=== PATIENT | male | born 1970 | race Caucasian/White ===

== ENCOUNTER 2018-10-31 12:03 | Observation (INO) ==
--- NOTE | 2018-10-31 12:25 | Emergency Department Note ---
Disposition Clinical Impression: JOYCE (acute kidney injury) Chest pain Qualifiers: Chest pain type: unspecified Qualified Code(s): R07.9 - Chest pain, unspecified Disposition: Admitted As Inpatient Condition: Good Referrals: Meg Pimentel CNP [Primary Care Provider] - Forms: ED Satisfaction Letter Time of Disposition: 16:25 General Adult HPI - General Chief complaint: ED Chest Pain Stated complaint: CP Time Seen by Provider: 10/31/18 12:13 Source: patient Mode of arrival: ambulatory Limitations: no limitations Nursing Notes Reviewed: Yes Vital Signs Reviewed: Yes - History of Present Illness HPI Narrative: Male patient presenting to respond complaining of left-sided chest pain. He initially went to urgent care earlier today however was sent here after he had some mild ST elevation noted in leads V1 and V2. Also be 3 was noted to be el evated on his initial EKG here. He states that he did take nitroglycerin at home which relieved the pain. However it did come back. This is abnormal for his previous chest pain. He currently denies any shortness of breath. Denies any fevers or chills. Denies any cough or congestion. Denies any diaphoresis or nausea associated with this. No history of hematochezia or melena or hematemesis. He has been taking his medication as prescribed. Does have history of high cholesterol. Pain Scale: 0 - Related Data Home Medications Medication Instructions Recorded Confirmed Aspirin [Lo-Dose Aspirin EC] 81 mg PO DAILY 04/11/17 10/31/18 Coumadin 5 mg PO QAM 04/11/17 10/31/18 Isosorbide. 30 mg PO QAM 04/11/17 10/31/18 Lisinopril [Zestril] 40 mg PO DAILY 04/11/17 10/31/18 Nitroglycerin [Nitrostat] 0.4 mg SL PRN PRN 04/11/17 10/31/18 Toprol Xl 200 mg PO QAM 04/11/17 10/31/18 hydroCHLOROthiazide 50 mg PO DAILY 04/11/17 10/31/18 [Hydrochlorothiazide] Ranolazine [Ranexa] 1,000 mg PO BID 10/31/18 10/31/18 Allergies Allergy/AdvReac Type Severity Reaction Status Date / Time codeine Allergy Rash Verified 01/15/18 15:24 All systems ED: reviewed and negative except as stated. Review of Systems: As Per HPI Constitutional: Denies: fever, chills ENT ED: Denies: congestion Cardiovascular: Reports: chest pain. Denies: palpitations, syncope Respiratory: Denies: cough, dyspnea Gastrointestinal: Denies: abdominal pain, nausea, vomiting, diarrhea Genitourinary: Denies: urgency, dysuria, frequency, hematuria Musculoskeletal: Denies: back pain, neck pain Integumentary: Denies: rash Neurological: Denies: headache, weakness Past Medical History - Past Medical History Attestation: Yes The following information was validated with the patient. Source: patient Medical history: Reports: coronary artery disease, hyperlipidemia, hypertension, other Psychiatric history: Reports: no psych history - Social History Smoking Status: Never smoker Smokeless Tobacco Status: No Alcohol use: Reports: none Drug use: Reports: none Physical Exam - General Limitations: no limitations General appearance: alert, in no apparent distress - Head Head exam: atraumatic, normocephalic, normal inspection - Eye Eye exam: Present: normal appearance, PERRL, EOMI - ENT ENT exam: normal exam, normal oropharynx, mucous membranes moist - Neck Neck exam: Present: normal inspection, full ROM, trachea midline - Chest Chest inspection: Present: normal inspection, symmetric chest wall rise - Respiratory Respiratory exam: Present: normal lung sounds bilaterally. Absent: respiratory distress, accessory muscle use - Cardiovascular Cardiovascular exam: Present: regular rate, normal rhythm, systolic murmur - Abdominal Exam Abdominal exam: Present: soft, Non-Tender. Absent: tenderness, distention, guarding, rebound, rigidity, organomegaly, Paige's sign, Rovsing's sign, tenderness at McBurney's Point - Extremities Exam Extremities exam: Present: normal inspection, full ROM, normal capillary refill. Absent: tenderness, pedal edema, calf tenderness - Back Exam Back exam: Present: normal inspection, full ROM. Absent: tenderness - Neurological Exam Neurological exam: Present: alert, oriented X3 - Psychiatric Psychiatric exam: Present: normal affect, normal mood - Skin Skin exam: Present: warm, dry, intact, normal color. Absent: rash, cyanosis, diaphoresis Course Course Narrative: Patient appears well resting in bed. Does not appear to be in acute distress. Does have a history of a mechanical valve replacement. Complaining of a sided chest pain. Denies any shortness of breath. States he did take some ni troglycerin at home and is generally takes his finger way however it did return again. States he has been feeling fleeting chest pain over the past week. Denies any other symptoms at this time. No diaphoresis and nausea vomiting or diarrhea. Does have a history of high cholesterol does have a family history of heart disease. Does have some mild ST elevations in leads V2 and V3. These were on previous EKG. Patient was a moderate score on his heart score. Troponin was negative. And get a basic lab workup on him and showed a elevated creatinine. We will provide him with a liter of fluid at this time. He does take a baby aspirin a day so we did give him 3 more while here. He states that his pain is gone at this time. We will admit to the hospital for further cardiac evaluation. He has never had a cardiac workup outside of his valve replacement. His INR was also noted to be mildly elevated. - Consultations Consultation #1: Dr Figueredo accepted Pt in stable condition. Time: 17:13 Vital Signs Temperature 97.6 F 10/31/18 12:12 Pulse Rate 67 10/31/18 12:12 Respiratory Rate 18 10/31/18 12:12 Blood Pressure 149/66 10/31/18 12:12 O2 Sat by Pulse Oximetry 100 10/31/18 12:12 Temperature 97.6 F 10/31/18 12:12 Pulse Rate 60 10/31/18 15:35 Respiratory Rate 13 10/31/18 15:04 Blood Pressure 139/52 10/31/18 15:35 O2 Sat by Pulse Oximetry 98 10/31/18 15:04 Oxygen Delivery Oxygen Delivery Room Air Medical Decision Making - Medical Records Medical records reviewed: Yes I reviewed the patient's medical records. - Lab Data Lab results reviewed: Yes I reviewed the patient's lab results. Result diagrams: 10/31/18 12:21 10/31/18 12:21 Lab Results 10/31/18 10/31/18 10/31/18 Range/Units 12:21 12:21 12:21 WBC 9.7 (4.3-11.1) K/mcL RBC 4.34 (4.19-5.50) M/mcL Hgb 13.6 (12.9-16.9) g/dL Hct 40.9 (37.5-50.1) % MCV 94.2 (83.0-100.0) fL MCH 31.3 (28.0-33.3) pg MCHC 33.3 (31.6-35.5) g/dL RDW 13.7 (11.5-14.5) % Plt Count 200 (140-400) K/mcL MPV 10.4 (9.4-12.4) fL Immature Gran % 0.3 (0-4) % Seg Neutrophils % 58.3 % Lymphocytes % 27.0 % Monocytes % 11.4 % Eosinophils % 2.6 % Basophils % 0.4 % Neutrophils # 5.6 (1.6-8.9) K/mcL Lymphocytes # 2.6 (0.6-4.6) K/mcL Monocytes # 1.1 (0.0-1.3) K/mcL Eosinophils # 0.3 (0.0-0.6) K/mcL Basophils # 0.0 (0.0-0.2) K/mcL PT 45.3 H* (9.4-12.1) Seconds INR 4.0 Sodium 136 (136-145) mEq/L Potassium 3.8 (3.5-5.1) mEq/L Chloride 100 (98-107) mEq/L Carbon Dioxide 28 (23-29) mEq/L BUN 32 H (6-20) mg/dL Creatinine 1.64 H (0.70-1.30) mg/dL Est GFR ( Amer) 55 L (> 60) Est GFR (Non-Af Amer) 45 L (> 60) BUN/Creatinine Ratio 20 (6-26) Glucose 101 (70-105) mg/dL Calculated Osmolality 289 (280-300) Calcium 10.7 H (8.6-10.3) mg/dL Troponin I 0.03 (< 0.04) ng/mL - Radiology Data Radiology results reviewed: Yes I reviewed the patient's radiology results. Chest X-Ray 10/31/18 12:19 IMPRESSION: 1. No acute cardiopulmonary disease. 2. Cardiomegaly. D/ / 10/31/2018 12:54:01 Aline Gutierrez MD / Dawna Diamond Interpreting Provider: Aline Gutierrez MD - EKG Data EKG #1 EKG attestation: Yes I reviewed and interpreted this EKG. EKG results narrative: Repeat EKGs 1532. No signs of acute ischemia. No progression of the ST kirk vation in lead V1 V2 and V3. Likely chronic. EKG #2 EKG attestation: Yes I reviewed and interpreted this EKG. EKG results narrative: Repeat EKGs 1532. No signs of acute ischemia. No progression of the ST elevation in lead V1 V2 and V3. Likely chronic.
--- NOTE | 2018-10-31 12:27 | Emergency Department Note ---
Disposition Clinical Impression: JOYCE (acute kidney injury) Chest pain Qualifiers: Chest pain type: unspecified Qualified Code(s): R07.9 - Chest pain, unspecified Disposition: Admitted As Inpatient Condition: Good Time of Disposition: 17:42 General Adult HPI - General Chief complaint: ED Chest Pain Stated complaint: CP Time Seen by Provider: 10/31/18 12:13 Nursing Notes Reviewed: Yes Vital Signs Reviewed: Yes - History of Present Illness Pain Scale: 0 - Related Data Home Medications Medication Instructions Recorded Confirmed Aspirin [Lo-Dose Aspirin EC] 81 mg PO DAILY 04/11/17 10/31/18 Coumadin 5 mg PO QAM 04/11/17 10/31/18 Lisinopril [Zestril] 40 mg PO DAILY 04/11/17 10/31/18 Nitroglycerin [Nitrostat] 0.4 mg SL PRN PRN 04/11/17 10/31/18 hydroCHLOROthiazide 50 mg PO DAILY 04/11/17 10/31/18 [Hydrochlorothiazide] Isosorbide MONOnitrate (24 HR) 30 mg PO DAILY 10/31/18 10/31/18 [Imdur] Metoprolol Succinate [Toprol Xl] 200 mg PO DAILY 10/31/18 10/31/18 Ranolazine [Ranexa] 1,000 mg PO BID 10/31/18 10/31/18 Allergies Allergy/AdvReac Type Severity Reaction Status Date / Time codeine Allergy Rash Verified 04/11/17 15:24 Past Medical History - Past Medical History Medical history: Reports: coronary artery disease, hyperlipidemia, hypertension, other Psychiatric history: Reports: no psych history - Social History Smoking Status: Never smoker Smokeless Tobacco Status: No Alcohol use: Reports: none Drug use: Reports: none Physical Exam - General General appearance: alert Course Vital Signs Temperature 97.6 F 10/31/18 12:12 Pulse Rate 67 10/31/18 12:12 Respiratory Rate 18 10/31/18 12:12 Blood Pressure 149/66 10/31/18 12:12 O2 Sat by Pulse Oximetry 100 10/31/18 12:12 Temperature 97.6 F 10/31/18 12:12 Pulse Rate 73 10/31/18 17:25 Respiratory Rate 17 10/31/18 17:25 Blood Pressure 164/65 10/31/18 17:25 O2 Sat by Pulse Oximetry 97 10/31/18 17:25 Oxygen Delivery Oxygen Delivery Room Air Medical Decision Making - MDM Narrative Medical decision making narrative: Chest X-Ray 10/31/18 12:19 IMPRESSION: 1. No acute cardiopulmonary disease. 2. Cardiomegaly. D/ / 10/31/2018 12:54:01 Aline Gutierrez MD / Dawna Diamond Interpreting Provider: Aline Gutierrez MD Patient does have an AKA I with the last creatinine I have is more than 3 years old slight ulnar how acute this is. His troponins negative. His INR is 4 which is a little high for his valve, I think with his EKG not have an old EKG it might be prudent to bring him into the hospital sort talk to him about that. 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 1615 hrs.: We did get an EKG finally from the full stack python developer's office the date on is not readable; overall quality of this EKG is poor.it shows a sinus rhythm, rate of 64 QRS is 105 QTC is 429 did have the same morphology on this EKG is today's EKG this old EKG is been very difficult to read just due to quality of copy. We talked about coming in the hospital and he is agreement with plan. - Lab Data Result diagrams: 10/31/18 12:21 10/31/18 12:21 Lab Results 10/31/18 10/31/18 10/31/18 Range/Units 12:21 12:21 12:21 WBC 9.7 (4.3-11.1) K/mcL RBC 4.34 (4.19-5.50) M/mcL Hgb 13.6 (12.9-16.9) g/dL Hct 40.9 (37.5-50.1) % MCV 94.2 (83.0-100.0) fL MCH 31.3 (28.0-33.3) pg MCHC 33.3 (31.6-35.5) g/dL RDW 13.7 (11.5-14.5) % Plt Count 200 (140-400) K/mcL MPV 10.4 (9.4-12.4) fL Immature Gran % 0.3 (0-4) % Seg Neutrophils % 58.3 % Lymphocytes % 27.0 % Monocytes % 11.4 % Eosinophils % 2.6 % Basophils % 0.4 % Neutrophils # 5.6 (1.6-8.9) K/mcL Lymphocytes # 2.6 (0.6-4.6) K/mcL Monocytes # 1.1 (0.0-1.3) K/mcL Eosinophils # 0.3 (0.0-0.6) K/mcL Basophils # 0.0 (0.0-0.2) K/mcL PT 45.3 H* (9.4-12.1) Seconds INR 4.0 Sodium 136 (136-145) mEq/L Potassium 3.8 (3.5-5.1) mEq/L Chloride 100 (98-107) mEq/L Carbon Dioxide 28 (23-29) mEq/L BUN 32 H (6-20) mg/dL Creatinine 1.64 H (0.70-1.30) mg/dL Est GFR ( Amer) 55 L (> 60) Est GFR (Non-Af Amer) 45 L (> 60) BUN/Creatinine Ratio 20 (6-26) Glucose 101 (70-105) mg/dL Calculated Osmolality 289 (280-300) Calcium 10.7 H (8.6-10.3) mg/dL Troponin I 0.03 (< 0.04) ng/mL Attestation Statement - Attestation Attestation: This documentation is done with the assistance of Dragon dictation. Despite efforts made to ensure accuracy, there may be inaccuracies in talent acquisition manager or spelling and typographical errors. I examined this patient and my medical decision-making was reviewed with the Resident Physician. I agree with the documented findings, disposition and treatment plan as described except to the extent set forth below. Patient was seen and evaluated by agreement, I agree with their evaluation and management plan, I supervised care the patient's stay. Patient presents today with chest pain from work. Nitroglycerin relieved his pain went to urgent care he had some elevation in V1 and V2, no old EKG to compare to and chest pain-free. He repeat EKG looks similar we do not have an old EKG, but he said his full stack python developer who is here probably has his EKGs from outside hospitals and he recommended trying to get one from there which we will do. We will order a troponin and lab workup and reassess currently chest pain-free. He has had aspirin already. I reviewed the residents documentation and agree with the residents assessment and plan of care. I have personally had face to face time with the patient. (Brief History, Brief Exam, and MDM) I personally supervised and was present for the knapp/critical portions of the following procedures completed by the resident: EKG was interpreted by the resident under my supervision, I agree with their interpretation.
[2018-10-31 12:36] LABS: Basophils % 0.4 %; Eosinophils # 0.3 K/mcL (0.0-0.6); Eosinophils % 2.6 %; Hematocrit 40.9 % (37.5-50.1); Hemoglobin 13.6 g/dL (12.9-16.9); Immature Granulocytes % 0.3 % (0-4); Lymphocytes # 2.6 K/mcL (0.6-4.6); Mean Corpuscular HGB Conc 33.3 g/dL (31.6-35.5); Mean Corpuscular Hemoglobin 31.3 pg (28.0-33.3); Mean Corpuscular Volume 94.2 fL (83.0-100.0); Mean Platelet Volume 10.4 fL (9.4-12.4); Monocytes # 1.1 K/mcL (0.0-1.3); Monocytes % 11.4 %; Neutrophils # 5.6 K/mcL (1.6-8.9); Platelet Count 200 K/mcL (140-400); Red Blood Count 4.34 M/mcL (4.19-5.50); Red Cell Distribution Width 13.7 % (11.5-14.5); Segmented Neutrophils % 58.3 %; White Blood Count 9.7 K/mcL (4.3-11.1)
[2018-10-31 12:57] LABS: Calcium 10.7 mg/dL (8.6-10.3); Potassium 3.8 mEq/L (3.5-5.1); Troponin I 0.03 ng/mL (< 0.04)
[2018-10-31 13:02] LABS: Prothrombin Time 45.3 Seconds (9.4-12.1)
[2018-10-31] MEDS ORDERED: 0.9 % Sodium Chloride 1,000 ML IVC ONE (15:51)
[2018-10-31] MEDS ORDERED: Aspirin 81 MG TAB.CHEW PO ONE (16:00)
[2018-10-31] MEDS ORDERED: Aspirin 81 MG TAB.CHEW PO SCH (16:00)
[2018-10-31] MEDS ORDERED: Naloxone 0.4 MG/ML INJ IVP PRN (18:18)
[2018-10-31] MEDS ORDERED: Nitroglycerin 0.4 MG TAB.SUBL SL PRN (18:18)
[2018-10-31] MEDS ORDERED: *HR* Promethazine 25 MG/ML VIAL IVP PRN (18:18)
[2018-10-31] MEDS ORDERED: Ondansetron ODT 4 MG TAB.RAPDIS SL PRN (18:18)
--- NOTE | 2018-10-31 18:27 | Internal Med History&Physical ---
Date of Encounter: 10/31/18 Time of Encounter: 18:22 Internal Medicine - H&P: HPI Chief complaint: Chest Pain History of present illness: Mr. Renae is a 47 year old male with history of CAD s/p CABG and multiple stents (last in 2016) and mechanical MVR on chronic warfarin presents with chest pain. Patient has had pain in his left back that he describes as a burning s ensation over the last 2 weeks. Nonexertional. Describes pain as a burning and itching sensation. Has had this sensation about twice a week over the last 2 weeks. Today, however, pain seems to move into left shoulder and left chest area as well and was similar to chest pain he had when he had heart attacks in the past so this concerned him. Today this episode occurred at rest when he was working at a [employer]. He was not particularly stressed at that time. Pain was associated with shortness of breath. Nausea or vomiting. Health is otherwise been stable. Denies recent orthopnea, dyspnea on exertion, or lower extremity edema. In the ED, VSS. CBC within normal limits. Creatinine 1.64 (BL .9). Trop neg. EKG with ?ABIGAIL but unchanged from previous EKGs. Admitted to medicine. Past Med Surg Social Fam HX - Past Medical History Medical history: coronary artery disease, hyperlipidemia, hypertension, other Psychiatric history: no psych history - Social History Smoking Status: Never smoker Smokeless Tobacco Status: No Alcohol use: none Drug use: none - Family History Father Hx Family Cardiac Disorders: Yes Internal Medicine - H&P: Meds Aspirin [Lo-Dose Aspirin EC] 81 mg PO DAILY 04/11/17 [History] Coumadin 5 mg PO QAM 04/11/17 [History] Lisinopril [Zestril] 40 mg PO DAILY 04/11/17 [History] Nitroglycerin [Nitrostat] 0.4 mg SL PRN PRN 04/11/17 [History] hydroCHLOROthiazide [Hydrochlorothiazide] 50 mg PO DAILY 04/11/17 [History] Isosorbide MONOnitrate (24 HR) [Imdur] 30 mg PO DAILY 10/31/18 [History] Metoprolol Succinate [Toprol Xl] 200 mg PO DAILY 10/31/18 [History] Ranolazine [Ranexa] 1,000 mg PO BID 08/06/19 [History] Allergy/AdvReac Type Severity Reaction Status Date / Time codeine Allergy Rash Verified 04/11/17 15:24 All Systems PM: A 10-system review of systems was performed and is negative for pertinent findings except as documented above in the HPI. Review of systems: General: Fevers / Chills / Weight loss / Night sweats Eyes: Blurry Vision / Change in Vision HENT: Ear Pain / Ear Drainage / Rhinorrhea / Throat Pain / Lymphadenopathy Cardiovascular: Chest Pain / Palpatations / Orthopnea / PUENTES / Weight gain Lungs: Dyspnea / Wheezing / Cough / Sputum production / Pleurisy Abdomen: Abdomen pain / Abdominal distention / Nausea / Vomiting / Diarrhea / Const : Dysuria / Urinary Frequency / Urinary Urgency / Hematuria Extremities: LE edema / Ext pain / Ext erythema Skin: Rashes / Abrasions / Contusions Psych: Hallucinations / Anxiety / Depression Neuro: Weakness / Numbness / Tingling / Facial Droop / Dysphagia - Constitutional Vitals: Temp Pulse Resp BP Pulse Ox 97.6 F 73 17 164/65 97 10/31/18 12:12 10/31/18 17:25 10/31/18 17:25 10/31/18 17:25 10/31/18 17:25 Exam: General: Ill-appearing and in no acute distress HEENT: No erythema of posterior pharynx. No exudates. Lymphatics: No mandibular or cervical lymphadenopathy Cardiovascular: RRR. Mechanical murmur. No chest wall tenderness. Lungs: Clear to auscelltation bilaterally. Regular chest rise. Abdomen: Non-tender. No rebound or gaurding. Nl bowel sounds. Extremities: No edema. 2+ pulses radial and pedal pulses Skin: No rahses, abrasions, or contusions. Nl cap refill. Psych: Nl attention. A&Ox3 Neuro: intelligence applications II-XII intact. 5/5 strength. Sensation to light touch and pinprick intact. Internal Med - H&P Results - Labs CBC & Chem 7: 10/31/18 12:21 10/31/18 12:21 Labs: Short CBC 10/31/18 Range/Units 12:21 WBC 9.7 (4.3-11.1) K/mcL Hgb 13.6 (12.9-16.9) g/dL Hct 40.9 (37.5-50.1) % Plt Count 200 (140-400) K/mcL Neutrophils # 5.6 (1.6-8.9) K/mcL BMP 10/31/18 12:21 Sodium 136 Potassium 3.8 Chloride 100 Carbon Dioxide 28 BUN 32 H Creatinine 1.64 H Glucose 101 Calcium 10.7 H Cardiac Enzymes 10/31/18 Range/Units 12:21 Troponin I 0.03 (< 0.04) ng/mL - Impressions ITS Impressions Chest X-Ray 10/31/18 12:19 IMPRESSION: 1. No acute cardiopulmonary disease. 2. Cardiomegaly. D/ / 10/31/2018 12:54:01 Aline Gutierrez MD / Dawna Diamond Interpreting Provider: Aline Gutierrez MD - Assessment and Plan (1) Chest pain Current Visit: Yes Status: Acute Assessment and plan: Patient with history of CAD s/p CABG and multiple stents (last in 2015) and mechanical MVR on chronic warfarin presents with chest pain in the setting of stable vitals, unremarkable physical exam, negative troponin, and no changes on EKG. -Workup for cardiac causes thus far is negative but given patient's high risk will need serial troponins. -Chest pain started in his back which is somewhat concerning for dissection. Again not classic for dissection given non-tearing sensation radiating to back Currently creatinine would not support CTA without significant injury to the kidneys Given chest pain has resolved and patient is clinically stable, reasonable to hold off on CTA but low threshold to obtain if chest pain recurs -We will consult cardiology given no recent stress tests and patient obviously very high risk PLAN - Trend troponins - Consult to cardiology - S/p 325mg ASA. Continue ASA 81mg qd - Continue home metoprolol. Unclear why patient is not on statin - will inquire - Will need to transition from warfarin to heparin ggt if patient goes for cath Will hold warfarin now and start heparin ggt at [place] IF doesn't go for cath can d/c heparin ggt and resume warfarin Qualifiers: Chest pain type: other chest pain Qualified Code(s): R07.89 - Other chest pain; R07.8 - Other chest pain (2) CAD (coronary artery disease) Current Visit: Yes Status: Acute Assessment and plan: The above Qualifiers: Coronary Disease-Associated Artery/Lesion type: bypass graft [place] vs. transplanted heart: [place] heart Associated angina: with stable angina Qualified Code(s): I25.708 - Atherosclerosis of coronary artery bypass graft(s), unspecified, with other forms of angina pectoris (3) History of MVR with cardiopulmonary bypass Current Visit: Yes Status: Acute Assessment and plan: We will transition patient to heparin drip given possible need for LHC (4) Hypertension Current Visit: Yes Status: Acute Assessment and plan: Hold Kenneth and HCTZ in setting of JOYCE Qualifiers: Hypertension type: essential hypertension Qualified Code(s): I10 - Essential (primary) hypertension (5) JOYCE (acute kidney injury) Current Visit: Yes Status: Acute Assessment and plan: Patient says where he works is very hot so dehydration may be a factor and patient is status post IV fluids in the ED. Chest x-ray with cardiomegaly so we will evaluate for cardiorenal process as well. - BNP - Trend Cr - Time Spent With Patient Total time spent is greater than 50% in coordination of care (as documented) at patient's floor/unit and/or counseling patient:
[2018-10-31] MEDS: Ranolazine 500 MG TAB.ER.12H PO SCH (21:41)
[2018-10-31 22:19] LABS: Bilirubin,Urine Negative (Negative); Blood,Urine Negative (Negative); Clarity,Urine Clear (Clear); Color,Urine Yellow (Yellow); Glucose,Urine (UA) 100 mg/dL (Normal); Ketones,Urine Negative (Negative); Leukocyte Esterase,Urine Negative (Negative); Nitrite,Urine Negative (Negative); Protein,Urine Negative (Neg-Trace); Specific Gravity,Urine 1.009 (1.010-1.025); Urobilinogen,Urine Normal (Normal)
[2018-11-01] MEDS ORDERED: Heparin 25,000 UNIT/250 ML D5W 25,000 UNIT/250 ML IV.SOLN IVC SCH
[2018-11-01] MEDS ORDERED: *HR* Heparin 5,000 UNIT/ML VIAL IVP PRN ×2
[2018-11-01 06:28] LABS: Basophils % 0.4 %; Eosinophils # 0.3 K/mcL (0.0-0.6); Eosinophils % 3.6 %; Hematocrit 38.7 % (37.5-50.1); Hemoglobin 12.5 g/dL (12.9-16.9); Immature Granulocytes % 0.4 % (0-4); Lymphocytes # 2.1 K/mcL (0.6-4.6); Lymphocytes % 27.7 %; Mean Corpuscular HGB Conc 32.3 g/dL (31.6-35.5); Mean Corpuscular Hemoglobin 30.6 pg (28.0-33.3); Mean Corpuscular Volume 94.6 fL (83.0-100.0); Mean Platelet Volume 11.2 fL (9.4-12.4); Monocytes # 0.7 K/mcL (0.0-1.3); Monocytes % 9.9 %; Neutrophils # 4.3 K/mcL (1.6-8.9); Platelet Count 170 K/mcL (140-400); Red Blood Count 4.09 M/mcL (4.19-5.50); Red Cell Distribution Width 13.8 % (11.5-14.5); White Blood Count 7.5 K/mcL (4.3-11.1)
--- NOTE | 2018-11-01 06:32 | Electrocardiograph Report ---
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
[2018-11-01 06:51] LABS: INR 4.5
[2018-11-01 07:32] LABS: BUN/Creatinine Ratio 23 (6-26); Blood Urea Nitrogen 28 mg/dL (6-20); Calcium 9.3 mg/dL (8.6-10.3); Carbon Dioxide 25 mEq/L (23-29); Chloride 102 mEq/L (98-107); Glucose 137 mg/dL (70-105); Osmolality,Calculated 288 (280-300); Sodium 135 mEq/L (136-145); eGFR For African Americans > 60 (> 60); eGFR For Non-African Americans > 60 (> 60)
[2018-11-01] MEDS ORDERED: Regadenoson 0.4 MG/5 ML SYRINGE IVP ONE (11:05)
--- NOTE | 2018-11-01 12:03 | Cardiology Consult Note ---
<Andrea Christopher - Last Filed: 11/01/18 12:01> Date of Encounter: 11/01/18 Time of Encounter: 12:01 Assessment and Plan (1) Back pain Current Visit: Yes Status: Acute Presented with left sided back pain that he describes as a burning and itching sensation over the last 2 weeks. He noticed increased shortness of breath yesterday. Troponins negative x 3. He denies actual chest pain. TTE 11/07/17: LVEF 60-65%. Diastolic dysfunction with elevated filling pressures. Normal RV structure and function. Prosthetic aortic valve not well visualized. Borderline Doppler evidence for abnormal valve function. There also is turbulent aortic regurgitation which appears moderate. Mild mitral regurgitation. No pulmonary hypertension. Hx of CAD s/p CABG and mechanical mitral valve replacement in 2010, PCI (last in 2015). Given cardiac hx, will order TTE and pharmacologic nuclear stress test (2 day) for further evaluation. Qualifiers: Back pain location: back pain in unspecified location Chronicity: acute Back pain laterality: left Qualified Code(s): M54.9 - Dorsalgia, unspecified (2) CAD (coronary artery disease) Current Visit: Yes Status: Acute As above, hx of CABG and PCI. Continue ASA, BB, nitrates. Will start Statin. Qualifiers: Coronary Disease-Associated Artery/Lesion type: bypass graft [place] vs. transplanted heart: [place] heart Associated angina: with stable angina Qualified Code(s): I25.708 - Atherosclerosis of coronary artery bypass graft(s), unspecified, with other forms of angina pectoris (3) History of MVR with cardiopulmonary bypass Current Visit: Yes Status: Chronic Mechanical MVR on Coumadin. Goal INR 2.5-3.5. Currently 4.5 Heparin gtt stopped. Denies abnormal bleeding. Discussion w patient/family: The assessment and plan as outlined above was discussed with the patient and/or family members who expressed understanding and agreement. All questions were answered. Thank you for involving us in the care of your patient. Please call with any questions. I will discuss all the above with Dr. Martell and make changes as necessary. History of Present Illness Consult date: 11/01/18 Consult reason: back pain Chief complaint: back pain History of present illness: Mr. Renae is a 47 year old male with PMH history of CAD s/p CABG and mechanical mitral valve replacement in 2010, PCI (last in 2016),on chronic warfarin for MVR that presents with left sided back pain that he describes as a burning sensation over the last 2 weeks. Burning and itching sensation. He noticed increased shortness of breath yesterday. Troponins negative x 3. He denies actual chest pain. Cardiology consulted for further recs. Prior CV testing: TTE 11/07/17: LVEF 60-65%. Diastolic dysfunction with elevated filling pressures. Normal right ventricular structure and function. Prosthetic aortic valve not well visualized. Borderline Doppler evidence for abnormal valve function. There also is turbulent aortic regurgitation which appears moderate. Mild mitral regurgitation. No pulmonary hypertension. Past Med Surg Social Fam HX - Past Medical History Medical history: coronary artery disease, hyperlipidemia, hypertension, valvular heart disease, other Psychiatric history: no psych history - Past Surgical History Surgical History: angioplasty/stent, coronary bypass (CABG) - Social History Smoking Status: Never smoker Smokeless Tobacco Status: No Alcohol use: none Drug use: none - Family History Father Hx Family Cardiac Disorders: Yes Medications and Allergies Aspirin [Lo-Dose Aspirin EC] 81 mg PO DAILY 04/11/17 [History] Coumadin 5 mg PO QAM 04/11/17 [History] Lisinopril [Zestril] 40 mg PO DAILY 04/11/17 [History] Nitroglycerin [Nitrostat] 0.4 mg SL PRN PRN 04/11/17 [History] hydroCHLOROthiazide [Hydrochlorothiazide] 50 mg PO DAILY 04/11/17 [History] Isosorbide MONOnitrate (24 HR) [Imdur] 30 mg PO DAILY 10/31/18 [History] Metoprolol Succinate [Toprol Xl] 200 mg PO DAILY 10/31/18 [History] Ranolazine [Ranexa] 1,000 mg PO BID 10/31/18 [History] Allergy/AdvReac Type Severity Reaction Status Date / Time codeine Allergy Rash Verified 04/11/17 15:24 All Systems Review: The remainder of the systems were reviewed and are negative - Cardiovascular Cardiovascular: as per HPI, dyspnea on exertion, radiating jaw, neck or arm pain Physical Examination Vital Signs Temp Pulse Resp BP Pulse Ox 11/01/18 07:35 97.9 F 67 16 126/72 98 11/01/18 04:00 97.7 F 63 16 105/65 99 08/06/19 23:52 97.6 F 65 16 102/64 98 10/31/18 18:36 97.5 F L 68 16 152/79 95 10/31/18 17:25 73 17 164/65 97 10/31/18 15:35 60 139/52 10/31/18 15:04 62 13 146/60 98 10/31/18 12:12 97.6 F 67 18 149/66 100 Intake and Output 10/31/18 11/01/18 11/01/18 23:59 07:59 15:59 Intake Total 69.6 / 81.0 11.4 / 81.0 Balance 69.6 / 81.0 11.4 / 81.0 Intake: IV Fluids 69.6 / 81.0 11.4 / 81.0 Heparin 25,000 UNIT/250 ML D5W 69.6 / 81.0 11.4 / 81.0 25,000 unit In 250 ml @ 8.67 UNIT/KG/HR 10.009 mls/hr IVC . Q24H [facility] Rx#:[id number] General: Conversant, No Apparent Distress HEENT: Atraumatic, Normocephaly, Mucus Membranes Moist Neck: No JVD, Normal carotid pulses Cardiac: Reg Rate and Rhythm, Normal S1 and S2, No Murmur Lungs: Normal Breath Sounds, No Wheeze, Rales, Rhonchi Neuro: Alert and responsive, No focal deficits noted Abdomen: Soft, Non-Tender Skin: No rashes noted on visualized skin Musculoskeletal: No Chest Wall Tenderness Extremities: No Clubbing, No Cyanosis, No Edema, Normal Pulses Results 11/01/18 06:08 11/01/18 06:08 Lab Results 10/31/18 10/31/18 10/31/18 12:21 12:21 12:21 WBC 9.7 Hgb 13.6 Hct 40.9 Plt Count 200 INR 4.0 Sodium 136 Potassium 3.8 Chloride 100 Carbon Dioxide 28 BUN 32 H Creatinine 1.64 H Glucose 101 Calcium 10.7 H Troponin I 0.03 B-Natriuretic Peptide 10/31/18 10/31/18 11/01/18 18:50 20:18 06:08 WBC Hgb Hct Plt Count INR Sodium Potassium Chloride Carbon Dioxide BUN Creatinine Glucose Calcium Troponin I 0.03 < 0.03 B-Natriuretic Peptide 119 H 11/01/18 11/01/18 11/01/18 06:08 06:08 06:08 WBC 7.5 Hgb 12.5 L Hct 38.7 Plt Count 170 INR 4.5 H* Sodium 135 L Potassium 4.0 Chloride 102 Carbon Dioxide 25 BUN 28 H Creatinine 1.22 Glucose 137 H Calcium 9.3 Troponin I B-Natriuretic Peptide - Imaging and Cardiology Echo: report reviewed - EKG Interpretation EKG results cardiology: personally reviewed Consult Discharge Plan - Plan Referrals: Meg Pimentel, [employer] [Primary Care Provider] - <Nicolette Martell - Last Filed: 11/01/18 21:42> Date of Encounter: 11/01/18 - Attending Attestation Patient was seen and evaluated independently by me. Findings, assessment and plan were discussed at length with patient, questions answered. Agree with nurse practitioner's/resident's documentation. Addition/corrections as follows, 47yoCM ho CABG, mechanical AVR on warfarin, last PCI 2015. P/w several days of left mid back/chest pain with dyspnea, at rest or exertional. Trop negative, ECG SR, old anterior GA, IVCD. TTE EF 60-65%, mild cLVH, mod DD, RV nl, mechanical AVR MG 28 (from 20 in ), DVI 0.4 no change, mild-mod AI, no evidence of PH. VSS, CTA, RR, mechanical S1/S2 with 3/6 SM, no LE edema. Hb 13.6 - 12.5, INR 4.5, JOYCE A: Atypical chest pain Ho CAD CABG PCI Mechanical AVR, mild-moderate elevated MG without change of DVI 0.4 c/w 2017, iEOA 0.7. Ddx patient-prosthesis mismatch, AR, LVOT flow acceleration. Supratherapeutic INR 4.5 Hb 13.6 - 12.5 P: SPECT hold warfarin 1 dose, goal INR 2.5 consider KHALIF for AVR eval if nl SPECT Nicolette Martell MD, PhD Assessment and Plan Discussion w patient/family: The assessment and plan as outlined above was discussed with the patient and/or family members who expressed understanding and agreement. All questions were answered. Thank you for involving us in the care of your patient. Please call with any questions. History of Present Illness History of present illness: Mr. Renae is a 47 year old male All Systems Review: The remainder of the systems were reviewed and are negative Physical Examination Vital Signs, Last 4 Hours Temp Pulse Resp BP Pulse Ox 11/01/18 19:21 97.6 F 75 16 131/73 97 Results 11/01/18 06:08 11/01/18 06:08 Lab Results 11/01/18 11/01/18 11/01/18 06:08 06:08 06:08 WBC 7.5 Hgb 12.5 L Hct 38.7 Plt Count 170 INR Sodium 135 L Potassium 4.0 Chloride 102 Carbon Dioxide 25 BUN 28 H Creatinine 1.22 Glucose 137 H Calcium 9.3 Troponin I < 0.03 11/01/18 06:08 WBC Hgb Hct Plt Count INR 4.5 H* Sodium Potassium Chloride Carbon Dioxide BUN Creatinine Glucose Calcium Troponin I
[2018-11-01] MEDS ORDERED: Perflutren Lipid Microsphere 1.3 ML in 0.9 % Sodium Chloride 8.7 ML IVP ONE (13:02)
[2018-11-01] MEDS ORDERED: Perflutren Lipid Microsphere 2 ML VIAL ONE (13:03)
--- NOTE | 2018-11-01 13:10 | Internal Med Progress Note ---
Hospitalist Progress Note - Encounter Date of Encounter: 11/01/18 Time of Encounter: 09:00 - Subjective Interval History: Patient was seen and examined at bedside. Reports that his back pain has resolved. Denies any chest pain. Has had no shortness of breath. Insert. Family at bedside. Currently nothing by mouth for cardiac testing. Denies fever, chills, nausea, vomiting or diarrhea. Has had no diaphoresis. No overnight events. - Exam Vitals: Temp Pulse Resp BP Pulse Ox 97.9 F 67 16 126/72 98 11/01/18 07:35 11/01/18 07:35 11/01/18 07:35 11/01/18 07:35 11/01/18 07:35 Exam: General: Patient is alert, oriented, no acute distress, obese Head: atraumatic, normocephalic, Eye: normal appearance, PERRL, no scleral icterus, no conjunctival injection ENT: mucous membranes moist, normal external ear exam Neck: normal inspection, trachea midline, full ROM, no carotid bruits Chest: normal inspection, symmetric chest rise Respiratory: distant breath sounds secondary to body habitus, Good respiratory effort. Bilateral breath sounds are clear without wheezing, crackles, or rhonchi. Cardiovascular: Regular rate and rhythm. s1 and s2 . murmur at the right second ICS parasternally. Abdomen: Bowel sounds present normoactive x-4 quadrants. Abdomen is soft, nondistended. no Epigastric tenderness. No guarding or rebound. No organomegaly noted, obese musculoskeletal: Spontaneously moving all extremities. no edema, no calf tenderness Skin: warm, dry, intact. Neuro: Alert and oriented x4. no focal deficit Psych: Patient's affect is normal - Assessment and Plan (1) Back pain Current Visit: Yes Status: Acute Assessment and Plan: Hx of CAD s/p CABG and mechanical mitral valve replacement in 2010, PCI (last in 2016). -Workup for cardiac causes thus far is negative but given patient's high risk will need serial troponins. Chest pain started in his back which is somewhat concerning for dissection. Again not classic for dissection given non-tearing sensation radiating to back. NPO CTA was performed secondary to elevated creatinine. not tachycardic or hypertensive. Given chest pain has resolved and patient is clinically stable, if Chest pain reoccurs will get CTA. -We will consult cardiology given no recent stress tests and patient obviously very high risk PLAN troponins trended flat cardiology consulted - recommended 2 part stress test continue ASA, BB, was started on statins. heparin drip that was started on admission held secondary to supratherapeutic INR follow INR daily TTE ordered (2) CAD (coronary artery disease) Current Visit: Yes Status: Acute Assessment and Plan: as above (3) History of MVR with cardiopulmonary bypass Current Visit: Yes Status: Chronic Assessment and Plan: Mechanical MVR on Coumadin. Goal INR 2.5-3.5 currently INR is supratherapeutic. pharmacy to dose coumadin (4) Hypertension Current Visit: Yes Status: Acute Assessment and Plan: ACEI and HCTZ were held secondary to JOYCE will resume ACEI from AM. (5) JOYCE (acute kidney injury) Current Visit: Yes Status: Resolved Assessment and Plan: UA with out evidence of blood. likely secondary to dehydration currently resolved avoid nephrotoxic medications. (6) Obesity (BMI 35.0-39.9 without comorbidity) Current Visit: Yes Status: Acute Assessment and Plan: was counseled on diet and nutrition. lipid panel and A1c in AM DVT Prophylaxis: on coumadin - Time Spent with Patient Total time spent is greater than 50% in coordination of care (as documented) at patient's floor/unit and/or counseling patient: 25 - 35 minutes Plan of Care Discussed with: patient Internal Medicine: Result - Labs CBC & Chem 7: 11/01/18 06:08 11/01/18 06:08 Labs: Short CBC 11/01/18 Range/Units 06:08 WBC 7.5 (4.3-11.1) K/mcL Hgb 12.5 L (12.9-16.9) g/dL Hct 38.7 (37.5-50.1) % Plt Count 170 (140-400) K/mcL Neutrophils # 4.3 (1.6-8.9) K/mcL BMP 11/01/18 06:08 Sodium 135 L Potassium 4.0 Chloride 102 Carbon Dioxide 25 BUN 28 H Creatinine 1.22 Glucose 137 H Calcium 9.3 Cardiac Enzymes 10/31/18 11/01/18 Range/Units 20:18 06:08 Troponin I 0.03 < 0.03 (< 0.04) ng/mL Urine 10/31/18 Range/Units 22:07 Urine Color Yellow (Yellow) Urine Clarity Clear (Clear) Urine pH 6.0 (5.0-8.0) pH Units Ur Specific [place] 1.009 L (1.010-1.025) Urine Protein Negative (Neg-Trace) mg/dL Urine Glucose (UA) 100 H (Normal) mg/dL - ABG Interpretation ABG results: PT/INR, D-dimer PT 51.0 Seconds (9.4-12.1) H* 11/01/18 06:08 - Impressions Impressions Chest X-Ray 10/31/18 12:19 IMPRESSION: 1. No acute cardiopulmonary disease. 2. Cardiomegaly. D/ / 10/31/2018 12:54:01 Aline Gutierrez MD / Dawna Diamond Interpreting Provider: Aline Gutierrez MD Consult Discharge Plan - Plan Referrals: Meg Pimentel, [facility] [Primary Care Provider] - (1) Back pain Qualifiers: Back pain location: back pain in unspecified location Chronicity: acute Back pain laterality: left Qualified Code(s): M54.9 - Dorsalgia, unspecified (2) CAD (coronary artery disease) Qualifiers: Coronary Disease-Associated Artery/Lesion type: bypass graft [place] vs. t ransplanted heart: [place] heart Associated angina: with stable angina Qualified Code(s): I25.708 - Atherosclerosis of coronary artery bypass graft(s), unspecified, with other forms of angina pectoris (4) Hypertension Qualifiers: Hypertension type: essential hypertension Qualified Code(s): I10 - Essential (primary) hypertension
[2018-11-01] MEDS: Metoprolol XL (24 HR) Succ 50 MG TAB.ER.24H PO SCH (14:16)
[2018-11-01] MEDS: Isosorbide MONOnitrate (24 HR) 30 MG TAB.ER.24H PO SCH (14:17)
[2018-11-01] MEDS: Aspirin Enteric Coated 81 MG Tablet PO SCH (14:17)
[2018-11-01] MEDS: Ranolazine 500 MG TAB.ER.12H PO SCH ×2 (14:18→21:55)
[2018-11-01] MEDS ORDERED: Warfarin perPT PO PRN (18:00)
[2018-11-01] MEDS ORDERED: *HR* Warfarin 2 MG TABLET PO ONE (18:00)
--- NOTE | 2018-11-01 18:20 | Electrocardiograph Report ---
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
[2018-11-02 01:28] LABS: INR 2.8; Prothrombin Time 32.3 Seconds (9.4-12.1)
[2018-11-02 01:39] LABS: Chol/HDL Ratio 3.4 (0-4.9)
[2018-11-02] MEDS: Aspirin Enteric Coated 81 MG Tablet PO SCH (08:04)
[2018-11-02] MEDS: Metoprolol XL (24 HR) Succ 50 MG TAB.ER.24H PO SCH (08:04)
[2018-11-02] MEDS: Ranolazine 500 MG TAB.ER.12H PO SCH (08:04)
[2018-11-02] MEDS: Isosorbide MONOnitrate (24 HR) 30 MG TAB.ER.24H PO SCH (08:04)
[2018-11-02 08:26] LABS: Estimated Average Glucose 128 mg/dl
[2018-11-02] MEDS ORDERED: Lisinopril 20 MG TABLET PO SCH (09:00)
[2018-11-02 11:40] VITALS: BP 124/72
--- NOTE | 2018-11-02 12:48 | Discharge Summary ---
- NOTES TO OUTPATIENT PROVIDER Notes to Outpatient Provider: follow up INR in AM on 11/03 for possible cath on monday 11/06 and lovenox bridge. close follow up with cardiology. Date of Encounter: 11/02/18 Time of Encounter: 12:46 - Discharge Diagnosis (1) Back pain Priority: Primary Status: Acute Qualifiers: Back pain location: thoracic back pain Chronicity: acute Back pain laterality: left Qualified Code(s): M54.6 - Pain in thoracic spine (2) CAD (coronary artery disease) Priority: Secondary Status: Acute Qualifiers: Coronary Disease-Associated Artery/Lesion type: bypass graft [place] vs. transplanted heart: [place] heart Associated angina: with stable angina Qualified Code(s): I25.708 - Atherosclerosis of coronary artery bypass graft(s), unspecified, with other forms of angina pectoris (3) Hypertension Priority: Secondary Status: Acute Qualifiers: Hypertension type: essential hypertension Qualified Code(s): I10 - Essential (primary) hypertension (4) JOYCE (acute kidney injury) Priority: Secondary Status: Resolved (5) History of mechanical aortic valve replacement Priority: Secondary Status: Chronic (6) Obesity (BMI 35.0-39.9 without comorbidity) Priority: Secondary Status: Acute Hospital course: " Mr. Renae is a 47 year old male with history of CAD s/p CABG and multiple stents (last in 2015) and mechanical AVR on chronic warfarin presents with chest pain. Patient has had pain in his left back that he describes as a burning sensation over the last 2 weeks. Nonexertional. Describes pain as a burning and itching sensation. Has had this sensation about twice a week over the last 2 weeks. Today, however, pain seems to move into left shoulder and left chest area as well and was similar to chest pain he had when he had heart attacks in the past so this concerned him. Today this episode occurred at rest when he was working at a [place] [facility]. He was not particularly stressed at that time. Pain was associated with shortness of breath. Nausea or vomiting. Health is otherwise been stable. Denies recent orthopnea, dyspnea on exertion, or lower extremity edema. In the ED, VSS. CBC within normal limits. Creatinine 1.64 (BL .9). Trop neg. EKG with ?ABIGAIL but unchanged from previous EKGs. Admitted to medicine." he was admitted for chest pain and to rule out ACS. troponins followed and were negative.cardiology was consulted and TTE performed full report below. stress test performed on 11/01 and 11/02 was abnormal ad it was recommended for him to have cardiac cath. after discussion that patient ad cardiology team had it was decided that he will be scheduled for OP cath likely on monday 11/06. he is to follow up in AM with cardiology team to recheck his INR and likely transitioned to lovenox for bridging and he understands. cardiology recommended to hold his coumadin tonight (11/02) and he understands ( parents at bedside and they understand) the risks and benefits as it was discussed by the cardiology team and by myself. i discussed with cardiology team and his INR will be checked in [facility] and and will prescribe lovenox tomorrow accordingly. IMDUR was increased by cardiology team. medications reviewed with him adn he takes rasuvastatin at home so he will resume that. he is to continue the rest of his medications. INR was therapeutic for aortic valve 2.8 on 11/02. A1c was 6.1 and he was counseled on diet and nutrition. he did have elevated creatinine on admission which resolved. TTE: TTE LVEF 60-65%. Mildly dilated LV. Mild cLVH. Moderate LVDD. Normal RV structure and function. Seismic Interpreter aortic valve was not well visualized. Mild-moderate aortic regurgitation. Unclear if valvular or paravalvular. 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 Mean gradient 33 mmHg. Peak velocity 4.03 m/s. These values have increased compared to prior report from 2018. stress test : Two areas of abnormal perfusion: Small sized, moderate intensity stress perfusion defect involving the distal inferolateral wall representing ischemia. There is a mild intensity resting perfusion defect in this area possibly representing prior infarct vs artifact. Small-medium sized mild to moderate intensity stress perfusion defect involving the mid to distal anterior segments representing ischemia. There is a mild intensity resting perfusion defect in the mid anterior wall at rest with abnormal wall motion representing infarct. Pharmacologic stress ECG is non diagnostic for ischemia due to baseline non-specific ST and T abnormalities. No appreciable change from baseline ECG. Gated EF = 54%. The left ventricle is dilated. There is qualitative transient ischemic dilatation. Findings communicated to ordering provider. Nuclear stress test showed two areas of abnormal perfusion: Small sized, moderate intensity stress perfusion defect involving the distal inferolateral wall representing ischemia. Small-medium sized mild to moderate intensity stress perfusion defect involving the mid to distal anterior segments representing ischemia. There is qualitative transient ischemic dilatation. Discharge discussed with: patient, audit consultant - Time Spent with Patient Total time spent providing and/or coordinating discharge services: Time spent: Greater than 30 minutes (35) - Discharge Medications Prescriptions: New Isosorbide MONOnitrate (24 HR) [Imdur] 60 mg PO DAILY 30 Days tab.er.24h Continued Lisinopril [Zestril] 40 mg PO DAILY hydroCHLOROthiazide [Hydrochlorothiazide] 50 mg PO DAILY Coumadin 5 mg PO QAM Aspirin [Lo-Dose Aspirin EC] 81 mg PO DAILY Ranolazine [Ranexa] 1,000 mg PO BID Metoprolol Succinate [Toprol Xl] 200 mg PO DAILY Nitroglycerin [Nitrostat] 0.4 mg SL PRN PRN #15 tab.subl PRN Reason: Chest Pain Rosuvastatin [Crestor] 40 mg PO Discontinued Isosorbide MONOnitrate (24 HR) [Imdur] 30 mg PO DAILY Home Medications: Aspirin [Lo-Dose Aspirin EC] 81 mg PO DAILY 04/11/17 [History] Coumadin 5 mg PO QAM 04/11/17 [History] Lisinopril [Zestril] 40 mg PO DAILY 04/11/17 [History] hydroCHLOROthiazide [Hydrochlorothiazide] 50 mg PO DAILY 04/11/17 [History] Metoprolol Succinate [Toprol Xl] 200 mg PO DAILY 10/31/18 [History] Ranolazine [Ranexa] 1,000 mg PO BID 10/31/18 [History] Isosorbide MONOnitrate (24 HR) [Imdur] 60 mg PO DAILY 30 Days tab.er.24h 11/02/18 [Rx] Nitroglycerin [Nitrostat] 0.4 mg SL PRN PRN #15 tab.subl 11/02/18 [Rx] Rosuvastatin [Crestor] 40 mg PO 11/02/18 [History] Allergies/Adverse Reactions: Allergy/AdvReac Type Severity Reaction Status Date / Time codeine Allergy Rash Verified 04/11/17 15:24 Date of admission: 10/31/18 17:18 Primary care physician: Meg Pimentel CNP Consults: 11/01/18 07:45 Consult to Cardiology [CONS] Routine Comment: Consulting Provider: Cardiology Na Reason for Consult: chest pain Call Completed: No - Constitutional Vitals: Temp Pulse Resp BP Pulse Ox 97.6 F 62 16 124/72 97 11/02/18 11:35 11/02/18 11:35 11/02/18 11:35 11/02/18 11:35 11/02/18 11:35 Exam: General: Patient is alert, oriented, no acute distress, obese Head: atraumatic, normocephalic, Eye: normal appearance, PERRL, no scleral icterus, no conjunctival injection ENT: mucous membranes moist, normal external ear exam Neck: normal inspection, trachea midline, full ROM, no carotid bruits Chest: normal inspection, symmetric chest rise Respiratory: distant breath sounds secondary to body habitus, Good respiratory effort. Bilateral breath sounds are clear without wheezing, crackles, or rhonchi. Cardiovascular: Regular rate and rhythm. s1 and s2 . murmur at the right second ICS parasternally. Abdomen: Bowel sounds present normoactive x-4 quadrants. Abdomen is soft, nondistended. no Epigastric tenderness. No guarding or rebound. No organomegaly noted, obese musculoskeletal: Spontaneously moving all extremities. no edema, no calf tenderness Skin: warm, dry, intact. Neuro: Alert and oriented x4. no focal deficit Psych: Patient's affect is normal - Patient Status Disposition: Home, Self-Care Condition: Fair Functional capacity at discharge: independent ambulation Overall status at discharge: patient is progressing back to baseline - Discharge Instructions Follow Up With: Meg Pimentel CNP [Primary Care Provider] - 11/06/18 8:30 am () Additional Instructions: follow up with cardiology in AM for INR check and possible bridge with lovenox for cath possibly on 11/06/18. - Diet and Activity Activity: increase activity as tolerated Diet: diabetic diet, low salt diet
--- NOTE | 2018-11-02 12:49 | Cardiology Progress Note ---
Date of Encounter: 11/02/18 Time of Encounter: 12:47 Assessment and Plan (1) Back pain Current Visit: Yes Status: Acute Presented with left sided back pain that he describes as a burning and itching sensation over the last 2 weeks. He noticed increased shortness of breath yesterday. Troponins negative x 3. He denies actual chest pain. No recurrent symptoms since admission. Hx of CAD s/p CABG and mechanical aortic valve replacement in 2010, PCI (last in 2015). Given cardiac hx, TTE and pharmacologic nuclear stress test (2 day) were ordered. TTE LVEF 60-65%. [employer] aortic valve was not well visualized. Mild-moderate AR. Unclear if valvular or paravalvular. 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 MG 33 mmHg. PV 4.03 m/s. Values have increased compared to prior report from 2018. Continue to monitor outpt. Nuclear stress test showed two areas of abnormal perfusion: Small sized, moderate intensity stress perfusion defect involving the distal inferolateral wall representing ischemia. Small-medium sized mild to moderate intensity stress perfusion defect involving the mid to distal anterior segments representing ischemia. There is qualitative transient ischemic dilatation. Recommend LHC. INR 2.8 today. Pt requests LHC be done outpt. Discussed with Dr. Martell, who is in agreement. Plan for LHC Tuesday as outpt. Hold Coumadin. Repeat INR outpt tomorrow and will determine Lovenox bridge at that time. Increase Imdur to 60mg daily. Instructed to report to ED for any worsening or persistent symptoms. Cardiology signing off. Reconsult PRN. Qualifiers: Back pain location: back pain in unspecified location Chronicity: acute Back pain laterality: left Qualified Code(s): M54.9 - Dorsalgia, unspecified (2) CAD (coronary artery disease) Current Visit: Yes Status: Acute As above, hx of CABG and PCI. Continue ASA, BB, statin, nitrates. LHC 01/2016 at outside facility documented: Left main normal. Circumflex 50% stenosis (FFR significant, BMS x1 placed). RCA proximal 100% stenosis. SVG to RPDA, SVG to OM1, DOBSON to LAD. Qualifiers: Coronary Disease-Associated Artery/Lesion type: bypass graft [place] vs. transplanted heart: [place] heart Associated angina: with stable angina Qualified Code(s): I25.708 - Atherosclerosis of coronary artery bypass graft(s), unspecified, with other forms of angina pectoris (3) History of mechanical aortic valve replacement Current Visit: Yes Status: Chronic History of a mechanical aortic valve replacement with subsequent redo mechanical aortic valve replacement. Anticoagulated on Coumadin, goal INR 2-3. TTE LVEF 60-65%. [employer] aortic valve was not well visualized. Mild-moderate AR. Unclear if valvular or paravalvular. 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 MG 33 mmHg. PV 4.03 m/s. Values have increased compared to prior report from 2018. Continue to monitor as outpt. INR 2.8 today. Will hold Coumadin for plan for outpt LHC as above. Recheck INR outpt tomorrow and will determine lovenox bridging. (4) Abnormal stress test Current Visit: Yes Status: Acute Nuclear stress test showed two areas of abnormal perfusion: Small sized, moderate intensity stress perfusion defect involving the distal inferolateral wall representing ischemia. Small-medium sized mild to moderate intensity stress perfusion defect involving the mid to distal anterior segments representing ischemia. There is qualitative transient ischemic dilatation. As above, recommended LHC and pt prefers outpt. Will coordinate for Tuesday. Discussion w patient/family: The assessment and plan as outlined above was discussed with the patient and/or family members who expressed understanding and agreement. All questions were answered. Thank you for involving us in the care of your patient. Please call with any questions. I will discuss all the above with Dr. Martell and make changes as necessary. Subjective Interval history: No acute complaints this AM. Objective Vital Signs, Last 4 Hours Temp Pulse Resp BP Pulse Ox 11/02/18 11:35 97.6 F 62 16 124/72 97 Vital Signs Temp Pulse Resp BP Pulse Ox 11/02/18 11:35 97.6 F 62 16 124/72 97 11/02/18 07:30 98.3 F 67 16 140/52 96 11/02/18 03:26 98.3 F 65 14 122/67 97 11/01/18 23:58 97.4 F L 66 14 121/68 97 11/01/18 19:21 97.6 F 75 16 131/73 97 11/01/18 16:10 97.7 F 74 16 115/75 97 11/01/18 14:21 78 148/80 Intake and Output 11/01/18 11/02/1811/02/19 23:59 07:59 15:59 Other: Meal NPO # Voids 1 Weight 115.1 kg Patient Weight 11/02/18 23:59 Weight 115.1 kg General: Conversant, No Apparent Distress HEENT: Atraumatic, Normocephaly, Mucus Membranes Moist Neck: No JVD, Normal carotid pulses Cardiac: Reg Rate and Rhythm, Normal S1 and S2, No Murmur Lungs: Normal Breath Sounds, No Wheeze, Rales, Rhonchi Neuro: Alert and responsive, No focal deficits noted Abdomen: Soft, Non-Tender Skin: No rashes noted on visualized skin Musculoskeletal: No Chest Wall Tenderness Extremities: No Clubbing, No Cyanosis, No Edema, Normal Pulses Results 11/01/18 06:08 11/01/18 06:08 Lab Results 11/02/18 00:54 INR 2.8 Impressions Echocardiogram 11/01/18 10:39 Impressions: LVEF 60-65%. Mildly dilated left ventricle. Mild concentric left ventricular hypertrophy. Moderate left ventricular diastolic dysfunction. Atypical septal motion consistent with post-operative status. Normal right ventricular structure and function. [employer] aortic valve was not well visualized. Mild-moderate aortic regurgitation. Unclear if valvular or paravalvular. 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 Mean gradient 33 mmHg. Peak velocity 4.03 m/s. These values have increased compared to prior report from 2018. No evidence of pulmonary hypertension identified. Consider further evaluation of prosthetic AV. Left Ventricular Wall Motion: Rest Echo Findings All wall segments showed normal motion. Findings: Study Quality * Technically sub-optimal due to poor echocardiographic windows. ECG Findings * Normal sinus rhythm. Left Ventricle * LVEF 60-65%. * Mildly dilated left ventricle. * Mild concentric left ventricular hypertrophy. * Moderate left ventricular diastolic dysfunction. * Atypical septal motion consistent with post-operative status. * Right Ventricle * Normal right ventricular structure and function. Left Atrium * Severely dilated left atrium. Right Atrium * Moderately dilated right atrium. Interatrial Septum * Interatrial septum not well evaluated. Aortic Valve * [employer] aortic valve was not well visualized. * Mild-moderate aortic regurgitation. Unclear if valvular or paravalvular. 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 Mean gradient 33 mmHg. Peak velocity 4.03 m/s. Mitral Valve * Normal mitral valve structure and function. * No mitral stenosis. * Trace mitral regurgitation. Tricuspid Valve * Normal tricuspid valve structure and function. * Trace tricuspid regurgitation. * No evidence of pulmonary hypertension identified. Pulmonic Valve * Pulmonic valve not well visualized. Aorta * Normally sized aortic root. Pericardium * The pericardium appears normal. IVC * Normal IVC dimensions and inspiratory collapse. Pulmonary Artery * Pulmonary artery not well visualized. Active Medications Aspirin (Aspirin Ec) 81 mg PO DAILY [facility] Stop: 05/03/19 09:01 Last Admin: 11/02/18 08:04 Dose: 81 mg Documented by: Atorvastatin Calcium (Lipitor) 40 mg PO HS [facility] Stop: 05/03/19 21:01 Last Admin: 11/01/18 21:55 Dose: 40 mg Documented by: Isosorbide Mononitrate (Imdur) 60 mg PO DAILY [facility] Stop: 05/05/19 09:01 Lisinopril (Zestril) 40 mg PO DAILY [facility] Stop: 05/04/19 09:01 Last Admin: 11/02/18 08:04 Dose: 40 mg Documented by: Metoprolol Succinate (Toprol Xl) 200 mg PO DAILY [facility] Stop: 05/03/19 09:01 Last Admin: 11/02/18 08:04 Dose: 200 mg Documented by: Naloxone HCl (Narcan) 0.4 mg IVP Q2MPRN PRN PRN Reason: SEE COMMENTS Stop: 05/02/19 18:19 Nitroglycerin (Nitroglycerin) 0.4 mg SL Q5MPRN PRN PRN Reason: Chest Pain Stop: 05/02/19 18:19 Ondansetron HCl (Zofran Odt) 4 mg SL Q8HR PRN PRN Reason: Nausea And Vomiting Stop: 05/02/19 18:19 Promethazine HCl (Phenergan) 12.5 mg IVP Q6HR PRN PRN Reason: Nausea And Vomiting Stop: 05/02/19 18:19 Ranolazine (Ranexa) 1,000 mg PO BID [facility] Stop: 05/02/19 21:01 Last Admin: 11/02/18 08:04 Dose: 1,000 mg Documented by: - Imaging and Cardiology Stress Test: report reviewed Echo: report reviewed - EKG Interpretation EKG results cardiology: other (12 hr tele AVG HR 63, SR) Consult Discharge Plan - Plan Additional Instructions: follow up with cardiology in AM for INR check and possible bridge with lovenox for cath possibly on 10/27/18. Referrals: Meg Pimentel CNP [Primary Care Provider] - 11/06/18 8:30 am () Prescriptions: Isosorbide MONOnitrate (24 HR) [Imdur] 60 mg PO DAILY 30 Days tab.er.24h Atorvastatin [Lipitor] 40 mg PO HS #30 tablet Nitroglycerin [Nitrostat] 0.4 mg SL PRN PRN #15 tab.subl PRN Reason: Chest Pain
[2018-11-02] MEDS ORDERED: *HR* Warfarin 5 MG TABLET PO ONE (18:00)
[2018-11-03] MEDS ORDERED: Isosorbide MONOnitrate (24 HR) 30 MG TAB.ER.24H PO SCH (09:00)
== END 2018-11-02 14:14 | disposition home or self-care (01) ==
LOC: EMEROOARM 12:03 → 3BNU 12:03 → SUATTDRO 17:18 → 3BNU 18:19
PROVIDERS: ADMIT Internal Medicine; ATTEND Internal Medicine